=== PATIENT | male | born 1975 | race Caucasian/White ===

== ENCOUNTER 2019-03-05 21:21 | Emergency (ER) | payer MEDICAID ==
[~2019-03-05] VITALS: Ht 170.2 cm; Wt 88.5 kg
[2019-03-05 21:29] VITALS: Ht 170.2 cm; Wt 88.5 kg
[2019-03-06 00:23] LABS: BASOPHIL % 0.1 % (0-2); RED CELL DISTRIBUTION WIDTH 12.7 % (11.5-14.5)
[2019-03-06 00:24] LABS: PLATELET COUNT 71 x10^3mcL (130-400)
[2019-03-06 00:30] LABS: CALCIUM 8.4 mg/dL (8.5-10.1); CARBON DIOXIDE 25.9 mmol/L (21-32); CHLORIDE SERUM 100 mmol/L (98-107); CREATININE SERUM 1.1 mg/dL (0.7-1.3); GFR1 > 60 mL/min; GLUCOSE SERUM 405 mg/dL (74-106); POTASSIUM SERUM 3.8 mmol/L (3.5-5.1); SODIUM SERUM 134 mmol/L (136-145)
[2019-03-06 00:35] LABS: ALBUMIN 3.3 g/dL (3.4-5.0); ALKALINE PHOSPHATASE 153 U/L (46-116); ALT/SGPT 59 U/L (16-63); AST/SGOT 18 U/L (15-37); BILIRUBIN TOTAL 1.6 mg/dL (0.20-1.00); TOTAL PROTEIN, SERUM 6.8 g/dL (6.4-8.2)
[2019-03-06 01:56] VITALS: BP 150/96
== END 2019-03-06 01:56 | disposition home or self-care (01) ==
LOC: ED 21:21
PROVIDERS: Emergency Medicine
DX: E11.9 Type 2 diabetes mellitus without complications (principal); N20.0 Calculus of kidney; N39.0 Urinary tract infection, site not specified
CPT/HCPCS: 82962; J0696; J1885; J7030; Q0092

== ENCOUNTER 2019-03-22 10:38 | Inpatient (IN) | payer MEDICAID ==
[~2019-03-22] VITALS: Ht 177.8 cm; Wt 85.8 kg
[2019-03-22 10:52] VITALS: Ht 177.8 cm; Wt 85.8 kg
--- NOTE | 2019-03-22 11:45 | NUR ---
PT PRESENTS TO ED WITH C/O HEMATURIA WITH URINARY FREQUENCY AND BURNING PAINS. PT REPORTS BEING TREATED FOR UTI ONE WEEK AGO HOWEVER SYMPTOMS HAVE NOT RESOLVED AND NOW HAS BLOOD IN URINE. PT AAOX4 NON COMPLIANT DIABETIC WITH NO PMD OVERSEEING HIS MEDICAL CARE. PT GOWNED PLACED ON FULL CM VSS AWAITING MD ELMUS AND ORDERS WILL MONITOR
--- NOTE | 2019-03-22 12:04 | NUR ---
IVF INFUSING WITH NO PROBLEM IV SITE PATENT PT ON FULL CM NSR VSS WILL MONITOR. URINE COLLECTED DIPPED AND SENT TO LAB. LAB BLOOD DRAW COMPLETED. PTS SON AT BEDSIDE
--- NOTE | 2019-03-22 12:12 | NUR ---
PORTABLE CXR AT BEDSIDE
[2019-03-22 12:19] LABS: UA SPECIFIC GRAVITY <=1.005 (1.005-1.035); microscopic required? YES; urine erythrocyte 3+ (NEGATIVE)
[2019-03-22 12:19] LABS: BASOPHIL % 0.2 % (0-2); PLATELET COUNT 215 x10^3mcL (130-400); RED CELL DISTRIBUTION WIDTH 12.5 % (11.5-14.5)
[2019-03-22 12:33] LABS: CALCIUM 9.2 mg/dL (8.5-10.1); CARBON DIOXIDE 27.9 mmol/L (21-32); CHLORIDE SERUM 102 mmol/L (98-107); CREATININE SERUM 0.8 mg/dL (0.7-1.3); GFR1 > 60 mL/min; GLUCOSE SERUM 379 mg/dL (74-106); POTASSIUM SERUM 4.1 mmol/L (3.5-5.1); SODIUM SERUM 137 mmol/L (136-145)
[2019-03-22 12:37] LABS: ALBUMIN 3.6 g/dL (3.4-5.0); ALKALINE PHOSPHATASE 141 U/L (46-116); ALT/SGPT 67 U/L (16-63); AST/SGOT 25 U/L (15-37); BILIRUBIN TOTAL 1.2 mg/dL (0.20-1.00); TOTAL PROTEIN, SERUM 7.3 g/dL (6.4-8.2)
--- NOTE | 2019-03-22 14:15 | NUR ---
DR LAO AT BEDSIDE FOR H&P
--- NOTE | 2019-03-22 14:42 | NUR ---
REPORT GIVEN NOHEMI WHITE
--- NOTE | 2019-03-22 14:50 | NUR ---
PT TRANSPORTED TO MED/SURG FLOOR VIA [facility] NO DISTRESS VSS IV SITE PATENT. NOHEMI WHITE RESUMING CARE OF PT.
[2019-03-22 14:51] LABS: MAGNESIUM 2.2 mg/dL (1.8-2.4); PHOSPHOROUS 3.1 mg/dL (2.5-4.9)
[2019-03-22 14:53] LABS: CHOLESTEROL/HDL RATIO 2.8
[2019-03-22 15:22] VITALS: BP 140/80
--- NOTE | 2019-03-22 15:24 | NUR ---
RECEIVED PT FROM ED VIA [facility]. ORIENTED PT TO ROOM AND SURROUNDINGS. IV NOTED TO LAC PATENT AND INTACT. INSTRUCTED PT ON THE USE OF CALL LIGHT FOR ASSISTANCE. ENDORSED PT TO PRIMARY NURSE NOHEMI
[2019-03-22 17:35] VITALS: BP 138/86
--- NOTE | 2019-03-22 19:30 | NUR ---
PT RECEIVED A/O X4, ABLE TO MAKE NEEDS KNOWN. FAMILY AT BEDSIDE. MED-SURG, DENIES ANY CP/PRESSURE. BREATHING IS EVEN AND UNLABORED, NO RESP DISTRESS NOTED. ABD SOFT AND NONDISTENDED, DENIES ANY N/V. 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 AMBULATORY WITH STEADY GAIT. PT NOTED WITH RASH/ABRASION TO RFA, ROXANNA, PT STATES HE GOT IT FROM WORK. PT DENIES HAVING ANY PAIN AT THIS TIME. IV TO LAC, PATENT AND INTACT, SITE WNL. BED IN LOWEST SETTING, SIDE RAILS UP X2, CALL LIGHT WITHIN REACH. WILL CONT TO MONITOR.
--- NOTE | 2019-03-22 19:55 | NUR ---
RESTING QUIETLY. INDEPENDENT W ADL'S. SL VSS. C/O BURNING WITH URINATION. ENDORSED TO NOC SHIFT WHO WILL ASK RESIDENT FOR PERIDIUM. STARTED ON ROCEPHIN IN ER. CALL LIGHT WITHIN REACH.
--- NOTE | 2019-03-22 21:47 | NUR ---
PT C/O BURNING UPON URINATION. DR STEVENS MADE AWARE. PYRIDIUM PO GIVEN ORDERED. EDUCATED PT THAT MEDICATION MAY CHANGE URINE COLOR, PT VERBALIZES UNDERSTANDING. NO ACUTE DISTRESS NOTED. FAMILY AT BEDSIDE. CALL LIGHT WITHIN REACH. WILL CONT TO MONITOR.
[2019-03-22 22:00] VITALS: BP 142/86
--- NOTE | 2019-03-23 00:54 | NUR ---
PT RESTING IN BED WITH EYES CLOSED, BUT IS EASILY AROUSABLE. BREATHING IS EVEN AND UNLABORED, NO ACUTE DISTRESS NOTED. CALL LIGHT WITHIN REACH. WILL CONT TO MONITOR.
[2019-03-23 06:05] VITALS: BP 99/60
--- NOTE | 2019-03-23 06:07 | NUR ---
PT SLEPT WELL THROUGHOUT THE EVENING. BREATHING IS EVEN AND UNLABORED, NO RESP DISTRESS NOTED. PT REPORTS GOOD RELIEF FROM PYRIDIUM. PT DENIES HAVING ANY PAIN AT THIS TIME. IV TO LAC, PATENT AND INTACT, SITE WNL. NO ACUTE CHANGES ENOUNTERED DURING SHIFT. ALL NEEDS ANTICIPATED AND MET. NO ACUTE DISTRESS AT THIS TIME. CALL LIGHT WITHIN REACH. WILL ENODRSE CARE TO AM NURSE.
--- NOTE | 2019-03-23 07:20 | NUR ---
RECEIVED BEDSIDE REPORT. PATIENT SITTING UP IN BED A/O X4, NO NEURO DEFICITS NOTED. DENIES ANY CHEST PAIN, SOB, OR PAIN. BREATHING EVEN AND UNLABBORED ON RA, NO DISTRESS NOTED. IV TO LAC H/L INTACT AND PATENT. PATIENT CALM WITH CARE. INSTRUCTED TO CALL FOR ASSISTANCE IF NEEDED. SAFETY PRECAUTIONS MAINTAINED, WILL MONITOR.
--- NOTE | 2019-03-23 08:25 | NUR ---
PATIENT SITTING UP IN BED WATCHING TELEVISION, NO DISTRESS NOTED. DUE MEDICATION GIVEN. ALL NEEDS ATTENDED TO, SAFETY PRECAUTIONS MAINTAINED. WILL MONITOR.
[2019-03-23 09:28] VITALS: BP 137/87
--- NOTE | 2019-03-23 10:01 | NUR ---
Discount pharmacy card and list to low cost medical clinics given to patient by Jose Carlos.
--- NOTE | 2019-03-23 12:00 | NUR ---
PATIENT SITTING UP IN BED RESTING COMFORTABLY NO DISTRESS NOTED, FAMILY AT BEDSIDE. BS 218, COVERED WITH 6 UNITS OF REGULAR INSULING PER SLIDING SCALE (SEE eMAR). ALL NEEDS ATTENDED TO, SAFETY PRECAUTIONS MAINTAINED. WILL MONITOR.
[2019-03-23 12:35] LABS: BASOPHIL % 0.5 % (0-2); PLATELET COUNT 223 x10^3mcL (130-400); RED CELL DISTRIBUTION WIDTH 12.6 % (11.5-14.5)
[2019-03-23 12:42] LABS: ALBUMIN 3.6 g/dL (3.4-5.0); ALKALINE PHOSPHATASE 140 U/L (46-116); ALT/SGPT 75 U/L (16-63); AST/SGOT 35 U/L (15-37); CALCIUM 8.9 mg/dL (8.5-10.1); CHLORIDE SERUM 102 mmol/L (98-107); CREATININE SERUM 0.9 mg/dL (0.7-1.3); GFR1 > 60 mL/min; GLUCOSE SERUM 208 mg/dL (74-106); POTASSIUM SERUM 3.6 mmol/L (3.5-5.1); SODIUM SERUM 139 mmol/L (136-145); TOTAL PROTEIN, SERUM 7.6 g/dL (6.4-8.2)
--- NOTE | 2019-03-23 13:20 | NUR ---
PATIENT SITTING UP IN BED, NO DISTRESS NOTED. DUE MEDICATION GIVEN, TOLERATED WELL. ALL NEEDS ATTENDED TO. SAFETY PRECAUTIONS MAINTAINED. WILL MONITOR.
--- NOTE | 2019-03-23 15:14 | NUR ---
PATIENT C/O ACHING HEADACHE 04/11, MEDICATED WITH TYLENOL 650 MG PO (SEE eMAR). ALL NEEDS ATTENDED TO. SAFETY PRECAUTIONS MAINTAINED. WILL MONITOR.
--- NOTE | 2019-03-23 17:00 | NUR ---
PATIENT SITTING UP IN BED, NO DISTRESS NOTED, FAMILY AT BEDSIDE. ALL NEEDS ATTENDED TO, SAFETY PRECAUTIONS MAINTAINED. WILL MONITOR.
[2019-03-23 17:03] VITALS: BP 142/86
--- NOTE | 2019-03-23 18:05 | NUR ---
PATIENT SITTING UP IN BED EATING DINNER, TOLERATING WELL NO DISTRESS NOTED. VISITOR AT BEDSIDE. IV TO LAC H/L INTACT AND PATENT FREE FROM REDNESS. ALL NEEDS ATTENDED TO DURING SHIFT, SAFETY PRECAUTIONS MAINTAINED, WILL ENDORSE CARE TO ONCOMING NURSE.
--- NOTE | 2019-03-23 19:30 | NUR ---
RECEIVED PT RESTING IN BED, NO ACUTE DISTRESS NOTED. PT AOX4, DENIES MONCADA/DIZZINESS. MEDSURG PT, DENIES CP. PULSES PALPABLE BILAT, CTA ON RA, DENIES SOB. RESP EVEN AND UNLABORED. PT VOIDS W/ MINIMAL DYSURIA, PT RECEIVED 3 DOSES OF PYRIDIUM DURING DAYSHIFT. PT AMB, DENIES LIGHTHEADEDNESS/DIZZINESS UPON AMBULATION. 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 IV SITE SALINE LOCKED TO THE LAC, NO REDNESS, SWELLING OR PAIN NOTED. ALL COMFORT AND SAFETY MEASURES PROVIDED FOR, CALL LIGHT WITHIN REACH, BED IN LOWEST POSITION, WILL CONTINUE TO MONITOR.
[2019-03-23 20:45] VITALS: BP 143/93
--- NOTE | 2019-03-23 21:40 | NUR ---
PT TOLERATED GLUCOSE CHECK WELL, WITH DM EDUCATION PROVIDED. PT PROVIDED 3 UNITS OF REG INSULIN FOR BLOOD SUGAR= 193, PT GIVEN FIRST OF LANTUS 20 UNITS THIS EVENING, PROVIDED EDUCATION ABOUT PEAK TIME AND PROVIDED PT WITH SANDWICH AND JUICE TO ENSURE PT BLOOD SUAGR REMAINS STABLE. PROVIDED PT S/S OF HYPOGLYCEMIA, PT VERBALIZES UNDERSTANDING, CALL LIGHT WITHIN REACH, BED IN LOWEST POSITION, WILL CONTINUE TO MONITOR.
--- NOTE | 2019-03-24 04:57 | NUR ---
PT RESTED IN INTERVALS DURING SHIFT, DENIES N/V/D. PT VOIDED SEVERAL TIMES DURING SHIFT, URINE APPEARS TO BE MORE YELLOW THAN THE PEACH COLOR EARLIER IN SHIFT. PT DENIES DYSURIA. PT REMAINS AOX4, PT REQUESTING AN ADVANCEMENT IN HIS DIET SINCE HE ALWAYS FEELS HUNGRY. ALL COMFORT AND SAFETY MEASURES PROVIDED FOR, CALL LIGHT WITHIN REACH, BED IN LOWEST POSITION, WILL CONTINUE TO MONITOR.
[2019-03-24 05:28] VITALS: BP 139/92
[2019-03-24 06:29] LABS: CALCIUM 9.3 mg/dL (8.5-10.1); CARBON DIOXIDE 25.2 mmol/L (21-32); CHLORIDE SERUM 105 mmol/L (98-107); CREATININE SERUM 0.8 mg/dL (0.7-1.3); GFR1 > 60 mL/min; GLUCOSE SERUM 152 mg/dL (74-106); MAGNESIUM 2.1 mg/dL (1.8-2.4); PHOSPHOROUS 4.5 mg/dL (2.5-4.9); POTASSIUM SERUM 3.8 mmol/L (3.5-5.1); SODIUM SERUM 142 mmol/L (136-145)
--- NOTE | 2019-03-24 07:00 | NUR ---
RECEIVED BEDSIDE REPORT FROM ONCOLOGY RESEARCH RN NURSE. PATIENT RESTING COMFORTABLY IN BED. NO APPARENT DISTRESS OR DISCOMFORT NOTED. BREATHING EVEN AND UNLABORED. NO RESPIRATORY DISTRESS NOTED. PATIENT DENIES CHEST PAIN/PRESSURE. IV PATENT AND INTACT. ALL QUESTIONS AND CONCERNS ADDRESSED. ALL NEEDS ATTENDED TO. WILL CONTINUE TO MONITOR
--- NOTE | 2019-03-24 07:23 | NUR ---
ENDORSED ALL CARE TO DAYSHIFT NURSE, NO ACUTE DISTRESS NOTED. ALL QUESTIONS AND CONCERNS ADDRESSED, ALL COMFORT AND SAFETY MEASURES PROVIDED FOR, CALL LIGHT WITHIN REACH, BED IN LOWEST POSITION.
[2019-03-24 08:01] LABS: BASOPHIL % 0.6 % (0-2); PLATELET COUNT 188 x10^3mcL (130-400); RED CELL DISTRIBUTION WIDTH 12.8 % (11.5-14.5)
--- NOTE | 2019-03-24 09:22 | NUR ---
ALL MORNING MEDICATIONS ADMINISTERED. PATIENT TOLERATED MEDICATION WELL. NO ADVERSE EFFECTS NOTED. ALL NEEDS ATTENDED TO. WILL CONTINUE TO MONITOR
[2019-03-24 09:33] VITALS: BP 149/94
[2019-03-24] MEDS ORDERED: LISINOPRIL10 MG PO (10:29)
[2019-03-24] MEDS ORDERED: METFORMIN HCL1000 MG PO (10:30)
[2019-03-24] MEDS ORDERED: LEVOFLOXACIN500 M1 PO (10:58)
--- NOTE | 2019-03-24 11:30 | NUR ---
PATIENT BLOOD SUGAR 229. 6 UNITS INSULIN COVERAGE REQUIRED. (SEE EMAR). ALL NEEDS ATTENDED TO. WILL CONTINUE TO MONITOR
--- NOTE | 2019-03-24 13:01 | NUR ---
PATIENT SITTING UP IN BED EATING LUNCH AT THIS TIME. PATIENT TOLERATING DIET WELL. NO APPARENT DISTRESS OR DISCOMFORT NOTED. ALL NEEDS ATTENDED TO. WILL CONTINUE TO MONITOR
[2019-03-24 13:06] VITALS: BP 149/94
--- NOTE | 2019-03-24 13:59 | NUR ---
PATIENT STABLE TO BE DISCHARGED TO HOME. DISCHARGE INSTRUCTIONS GIVEN WELL EDUCATION. INSTRUCTED ALPHONSON ABOUT FOLLOW UP APOPINTMENT. PATIENT VERBALIZES UNDERSTANDING. IV REMOVED WITH CATH INTACT. ID BANDS REMOVED. ALL BELONGINGS WITH PATIENT. ALL QUESTIONS AND CONCERNS ADDRESSED. ALL NEEDS ATTENDED TO. ESCORTED DOWN TO THE LOBBY BY RN AT THIS TIME
== END 2019-03-24 13:59 | disposition home or self-care (01) | DRG 463 ==
LOC: ED 10:38 → MU 13:55
PROVIDERS: Emergency Medicine; ADMIT General Practice
DX: N39.0 Urinary tract infection, site not specified (principal); E11.65 Type 2 diabetes mellitus with hyperglycemia; R31.9 Hematuria, unspecified; E80.6 Other disorders of bilirubin metabolism; Z68.29 Body mass index [BMI] 29.0-29.9, adult
CPT/HCPCS: 82962; G0378; J0696; J7030; Q0092